=== PATIENT | female | born 1965 | race Caucasian/White ===

== ENCOUNTER 2024-08-28 05:59 | Day surgery (SDC) | payer OTHER ==
[2024-08-22 09:28] LABS: URINE APPEARANCE Clear; URINE BILIRRUBIN Negative (NEGATIVE); URINE BLOOD Negative; URINE COLOR Yellow; URINE GLUCOSE Negative (NEGATIVE); URINE KETONE Negative (NEGATIVE); URINE LEUKOCYTE Trace; URINE NITRATE Negative; URINE PROTEIN Negative (NEGATIVE); URINE UROBILINOGEN 0.2 E.U./dl
[2024-08-22 09:33] LABS: URINE BACTERIA 1455.1 uL (0.0-1933); URINE EPITHELIAL CELLS 56.5 uL (0.0-38.8); URINE WBC 39.8 uL (0.0-23.2)
[2024-08-22 09:36] VITALS: BP 110/73
[2024-08-22 09:43] LABS: URINE CAST 0.29 uL (0.0-1.40); URINE RBC 1.4 uL (0.0-20.8)
[2024-08-22 09:45] LABS: HEMATOCRIT 36.3 % (36.0-45.00); HEMOGLOBIN 12.1 g/dL (12.0-15.00); MEAN CELL VOLUME 83.8 fL (80.00-100.00); MEAN CORPUSCULAR HEMOGLOBIN 28.1 pg (27.00-32.0); MEAN CORPUSCULAR HGB CONC 33.5 g/dl (32.0-36.0); PLATELET COUNT 189 K/uL (150-450); RED BLOOD COUNT 4.33 M/uL (4.00-6.00); RED CELL DISTRIBUTION WIDTH 14.6 % (11.5-14.5)
[2024-08-22 09:57] LABS: INR 0.94; PARTIAL THROMBOPLASTIN TIME 27.1 SECONDS (22.0-34.0); PROTHROMBIN TIME 10.3 SECONDS (9.0-11.5)
[2024-08-22 10:01] LABS: ALBUMIN 3.5 gm/dL (3.4-5.0); BILIRUBIN TOTAL 0.39 mg/dL (0.3-1.2); CALCIUM 8.7 mg/dL (8.5-10.1); CHOL HDL RATIO 2.1 (0-5.0); CREATININE SERUM 0.58 mg/dL (0.55-1.02); GFR 106.4; GLOBULINA 3.4 G/DL (2.4-3.5); POTASSIUM 3.87 mEq/L (3.5-5.1); TOTAL PROTEIN 6.9 gm/dL (6.4-8.2)
[~2024-08-28] VITALS: Ht 152.4 cm; Wt 90.7 kg
[~2024-08-28 05:59] MED LIST: ATORVASTATIN CA10 MG; SYNTHROID50 MCG; ZESTRIL10 M1 PO
[2024-08-28] MEDS ORDERED: CEFAZOLIN SODIUM 1,000 MG VIAL ONE (10:16)
[2024-08-28] MEDS ORDERED: METHYLPREDNISOLONE ACETATE 80 MG/ML VIAL ONE (10:27)
[2024-08-28] MEDS ORDERED: ASA325 M1 PO (11:24)
[2024-08-28] MEDS ORDERED: TRAM1TAB98 PO (11:24)
[2024-08-28] MEDS ORDERED: DUI500 PO (11:24)
== END 2024-08-28 17:45 | disposition home or self-care (01) ==
LOC: CIR.AMB 05:59
PROVIDERS: ATTEND Orthopaedic Surgery
DX: S83.241A Other tear of medial meniscus, current injury, right knee, initial encounter (principal); S83.281A Other tear of lateral meniscus, current injury, right knee, initial encounter; M94.261 Chondromalacia, right knee; M23.41 Loose body in knee, right knee; Z91.012 Allergy to eggs; Z91.02 Food additives allergy status; Z91.013 Allergy to seafood; E66.9 Obesity, unspecified; I10 Essential (primary) hypertension; J45.909 Unspecified asthma, uncomplicated; E03.8 Other specified hypothyroidism